=== PATIENT | female | born 1930 | race Caucasian/White ===

== ENCOUNTER → 2018-10-05 | Outpatient (REF) | payer MEDICARE, MEDICAID | LOC: M LAB LCGH 17:28 | PROVIDERS: ATTEND Surgery | DX: R19.5 Other fecal abnormalities (principal) ==

== ENCOUNTER → 2018-10-30 | Outpatient (REF) | LOC: M LAB LCGH 15:25 | PROVIDERS: ATTEND Surgery | DX: K80.20 Calculus of gallbladder without cholecystitis without obstruction (principal) ==